=== PATIENT | female | born 1945 | race Caucasian/White ===

== ENCOUNTER → 2016-04-23 08:33 | Outpatient (CLI) | payer OTHER ==
[~2016-04-23 08:33] MED LIST: ASPIRIN EC81 M1 PO; BACLOFEN10 MG PO; DIOVAN HCT 160/1 TA1 PO; NAMENDA XR28 MG PO; OMEPRAZOLE20 M1 PO; PLAVIX75 MG PO; PROTONIX40 MG PO; SYNTHROID88 MCG PO; ZOCOR10 MG PO; ZYPREXA5 MG PO
== END | disposition home or self-care (01) ==
LOC: D.NM 08:33
DX: R11.2 Nausea with vomiting, unspecified (principal); R19.7 Diarrhea, unspecified

== ENCOUNTER 2016-06-05 13:15 | Inpatient (IN) | payer MEDICARE ==
[~2016-06-05] VITALS: Ht 167.6 cm; Wt 57.2 kg
[2016-06-05 13:51] LABS: BASOPHILS 0.1 % (0.0-2.0); EOSINOPHILS 0.1 % (0-7); HEMATOCRIT 43.9 % (36.0-48.0); HEMOGLOBIN 14.8 g/dL (12-16); LYMPHOCYTES 12.3 % (15-50); MCH 32.9 pg (26.0-34.0); MCHC 33.7 g/dL (31.0-37.0); MCV 97.6 fL (80.0-100.0); MEAN PLATELET VOLUME 9.2 fL (7.4-10.4); MONOCYTES 11.1 % (2-11); NEUTROPHILS 75.4 % (40-80); PLATELET COUNT 192 10x3/uL (130-400); WBC 10.4 10x3/uL (4.8-10.8)
[2016-06-05 14:08] LABS: ALBUMIN 3.8 g/dL (3.4-5.0); BILIRUBIN - TOTAL 0.26 mg/dL (0.2-1.3); CALCIUM 9.5 mg/dL (8.5-10.1); CARBON DIOXIDE 33.5 mmol/L (21.0-32.0); CREATININE - SERUM 0.9 mg/dL (0.6-1.3); POTASSIUM - SERUM 3.5 mmol/L (3.5-5.1); PROTEIN - SERUM 7.4 g/dL (6.4-8.2)
[2016-06-05 14:10] LABS: APTT 22.4 SECONDS (22.8-39.4); INR 0.91 (0.85-1.17)
[2016-06-05 14:17] LABS: THYROID STIMULATING HORMONE 0.01 uIU/mL (0.36-3.74)
[2016-06-05 14:31] LABS: APPEARANCE CLEAR (CLEAR); BACTERIA FEW /hpf (NONE SEEN); BILIRUBIN NEGATIVE (NEGATIVE); COLOR STRAW (YELLOW); EPITHELIAL CELLS RARE /hpf (0-5); GLUCOSE NEGATIVE (NEGATIVE); KETONE NEGATIVE (NEGATIVE); LEUKOCYTE ESTERASE TRACE (NEGATIVE); NITRITE NEGATIVE (NEGATIVE); PROTEIN NEGATIVE (NEGATIVE); SPECIFIC GRAVITY 1.005 (1.005-1.020); UROBILINOGEN NORMAL (NORMAL); WHITE CELLS - URINE OCC /hpf (0-5)
[2016-06-05] MEDS ORDERED: SYNTHROID88 MCG PO (18:28)
[2016-06-05] MEDS ORDERED: DIOVAN HCT 160/1 TA1 PO (18:28)
[2016-06-05] MEDS ORDERED: PLAVIX75 MG PO (18:29)
[2016-06-05] MEDS ORDERED: OMEPRAZOLE20 M1 PO (18:30)
[2016-06-05] MEDS ORDERED: NAMENDA XR28 MG PO ×2 (18:31)
[2016-06-05] MEDS ORDERED: ZOCOR10 MG PO (18:31)
[2016-06-05] MEDS ORDERED: ZYPREXA5 MG PO (18:32)
[2016-06-05 19:17] VITALS: BP 158/78; BMI 20.3
[2016-06-05 20:00] VITALS: BP 145/52
--- NOTE | 2016-06-05 20:00 | NUR ---
PT RESTING QUIETLY, FLAT AFFECT AND APPEARS WITHDRAWN. NURSE AND EXECUTIVE PILOT REPOSITIONED IN BED FOR COMFORT, PT DENIES ANY NEEDS OTHERWISE. BED IN LOWEST POSITION, CALL LIGHT IN REACH, ASSESSMENT PER FLOWSHEET.
[2016-06-06] VITALS: BP 157/62
--- NOTE | 2016-06-06 00:42 | NUR ---
PT RESTING QUIETLY, RESP EVEN AND UNLABORED ON 2L NC. DENIES ANY NEEDS AT THIS TIME. CALL LIGHT IN REACH.
--- NOTE | 2016-06-06 00:43 | NUR ---
CONSULT PAGED TO DR. GONSALVES.
--- NOTE | 2016-06-06 01:05 | NUR ---
RESTING WITH EYES CLOSED, NO DISTRESS NOTED, SAFETY PRECAUTIONS IN PLACE, CL IN REACH
--- NOTE | 2016-06-06 03:00 | NUR ---
PT CONFUSED, TRYING TO CLIMB OUT OF BED. BED ALARM IN PLACE, ATTEMPTED TO REORIENT. PT THEN EXPLAINED THAT SHE WAS WET AND HER SHEETS WERE WET. LINEN CHANGE AT THIS TIME.
[2016-06-06 04:00] VITALS: BP 166/76
--- NOTE | 2016-06-06 07:30 | NUR ---
AWAKE ALERT LEFT SIDE FLACCID LEG LEFT ARM CONTRACTED AT PRESENT.RESP EVEN AND UNLABORED AT PRESENT.
[2016-06-06 08:38] VITALS: BP 144/67
--- NOTE | 2016-06-06 09:00 | NUR ---
MEDS GIVEN WITH SIP OF H20 KAMERON WELL.
--- NOTE | 2016-06-06 10:00 | NUR ---
CONT NPO FOR TEST INCONT OF URINE LINENS CHGD KAMERON WELL AT PRESENT.
--- NOTE | 2016-06-06 12:00 | NUR ---
QUIET IN ROOM AT PRESENT CONT NPO AT PRESENT AT BEDSIDE.
[2016-06-06 12:52] VITALS: Ht 167.6 cm; Wt 57.2 kg
--- NOTE | 2016-06-06 13:00 | NUR ---
CONT NPO FOR TEST AT PRESENT N/C.
[2016-06-06 13:04] VITALS: BP 132/66
--- NOTE | 2016-06-06 14:00 | NUR ---
TO X-RAY VIA BED AT PRESENT FAMILY AT BEDSIDE AT PRESENT.
--- NOTE | 2016-06-06 16:00 | NUR ---
INCONT OF URINE AT PRESENT LINENS GD AT PRESENT.
[2016-06-06 16:43] VITALS: BP 154/68
--- NOTE | 2016-06-06 17:14 | NUR ---
Rehab Note- Acute Rehab Precreen order received. The patient has [employer] insurance and will require a PreAuth prior to IRF stay. Will need a PT and OT eval to submit to [facility] for PreAuth. Will follow at this time and will submit for PreAuth when therapy evals are avaliable. Thank you for this referral! Susana Rodriguez RN Clinical Liaison, [facility] Rehab/Misael
--- NOTE | 2016-06-06 17:56 | NUR ---
AWAKE ALERT ON HER WAY TO MRI VIA STRETCHER AT PRESENT SL PATENT IN RT WRIST AT PRESENT.
[2016-06-06 20:00] VITALS: BP 139/64
[2016-06-07] VITALS: BP 133/55
--- NOTE | 2016-06-07 02:23 | NUR ---
RESTING WITH EYES CLOSED, NO DISTRESS NOTED, CL IN REACH
[2016-06-07 04:00] VITALS: BP 145/61
[2016-06-07 06:13] LABS: BASOPHILS 0.1 % (0.0-2.0); EOSINOPHILS 0.6 % (0-7); HEMOGLOBIN 15.5 g/dL (12-16); IMMATURE GRANULOCYTES 0.8 % (0-5); LYMPHOCYTES 20.1 % (15-50); MCH 33.4 pg (26.0-34.0); MCHC 34.4 g/dL (31.0-37.0); MEAN PLATELET VOLUME 9.2 fL (7.4-10.4); MONOCYTES 12.1 % (2-11); NEUTROPHILS 66.3 % (40-80); PLATELET COUNT 185 10x3/uL (130-400); RBC 4.64 10x6/uL (4.00-5.40); RDW 13.1 % (11.5-14.5); WBC 7.8 10x3/uL (4.8-10.8)
[2016-06-07 06:25] LABS: ANION GAP 11.6 mmol/L (8-16); CARBON DIOXIDE 29.7 mmol/L (21.0-32.0); CREATININE - SERUM 0.9 mg/dL (0.6-1.3); POTASSIUM - SERUM 3.3 mmol/L (3.5-5.1)
[2016-06-07 06:33] LABS: CALCIUM 7.1 mg/dL (8.5-10.1)
--- NOTE | 2016-06-07 07:25 | NUR ---
AWAKE ALERT COLOR ADQ SKIN WARM AND DRY AT PRESENT DENIES ANY NEEDS INCONT OF URINE LINENS TANIA REPOSITIONED IIN BED AT PRESENT.
[2016-06-07 08:35] VITALS: BP 137/60
--- NOTE | 2016-06-07 09:10 | NUR ---
MEDS GIVEN KAMERON WELL AT PRESENT DENIES ANY NEEDS AT THIS TIME.
--- NOTE | 2016-06-07 09:10 | NUR ---
INCONT OF URINE LINENS CHGD KAMERON WELL MEDS GIVEN KAMERON WELL.
--- NOTE | 2016-06-07 09:41 | NUR ---
Patient Name: CLINT HUSAIN Admission Status: ER Accout number: [id number] Admission Date: 06-05-2016 : 1945 Admission Diagnosis: Attending: ZACHARY Current LOS: 2 Anticipated DC Date: 06-10-2016 Planned Disposition: Fpc Facility Primary Insurance: [employer] CHOICE PPO MCR [employer]VANT Discharge Planning Comments: CM CALLED SPOUSE REGARDING PATIENTS D/C NEEDS AND PLANS. PATIENT CONFUSED SO SPOUSE WAS CALLED. PATIENT HAS NOT BEEN ABLE TO WALK PER SPOUSE AND HE HAS REQUESTED GROUP HOME AT DISCHARGE. PATIENTS PCP IS DR. SHARMA AND PHARMACY IS [facility] ON [address] [place] [address]. PATIENT HAS 1 STEP W/O RAILS TO ENTER HOME AND NO STAIRS INSIDE PER SPOUSE. PATIENT HAS RECENTLY BEEN IN [facility] [place] PER SPOUSE. PATIENT HAS A WALKER AT HOME IF SHE BECOMES ABLE TO WALK AGAIN PER SPOUSE. SPOUSE VERBALIZED THE [facility] FOR HIS AT DISCHARGE. CM WILL CONTINUE TO FOLLOW PATIENT WITH D/C NEEDS AND PLANS. PCP DR. SHARMA [facility]. PHARMACY [address] [place] [address]- [phone] RASHEED HUSAIN (SPOUSE) [phone] Diesel Engine Operator: Kasey Astorga Is the patient Alert and Oriented? No 0 * How many steps to enter\exit or inside your home? 1 W/O RAIL 0 * PCP DR. SHARMA 0 * Pharmacy [facility] ON [address] [place] [address] 0 * Preadmission Environment Home with Family 0 * ADLs Total Dependent 0 * Equipment Walker 0 * List name and contact numbers for known caregivers / representatives who currently or will assist patient after discharge: RASHEED (SPOUSE) [phone] * Community resources currently utilized None 0 * Additional services required to return to the preadmission environment? Yes 0 * Can the patient safely return to the preadmission environment? Yes 0 * Has this patient been hospitalized within the prior 30 days at any hospital? No 0 Grand Total: 0
--- NOTE | 2016-06-07 10:00 | NUR ---
INCONT OF URINE LINENS CHGD REPOSITIONED IN BED AT PRESENT.
[2016-06-07 11:23] VITALS: BP 141/60
--- NOTE | 2016-06-07 12:12 | NUR ---
AWAKE ALERT COLORD ADQ RESP EVEN AND UNLABORED AT BEDSIDE.
--- NOTE | 2016-06-07 14:33 | NUR ---
SLEEPING QUIETLY AT PRESENT DENIES ANY NEEDS AT PRESENT.FAMILY AT BEDSIDE.
[2016-06-07 15:50] VITALS: BP 113/54
[2016-06-07 19:00] VITALS: BP 116/63
--- NOTE | 2016-06-07 20:50 | NUR ---
PATIENT RESTING IN BED. ALERT. DISORIENTED TO PLACE, TIME, AND SITUATION. ANXIOUS. RESPIRATIONS ARE EVEN AND UNLABORED. BED RAILS UP X3. BED ALARM ON. CALL LIGHT IN REACH.
--- NOTE | 2016-06-08 03:15 | NUR ---
PT CONTINUALLY YELLING OUT FOR "RASHEED", CONFUSED AT THIS TIME, EASILY REDIRECTED, FALL PRECAUTIONS IN PLACE, CL IN REACH
[2016-06-08 04:00] VITALS: BP 116/54
--- NOTE | 2016-06-08 07:30 | NUR ---
SLEEPING, EASILY AROUSED, DENIES NEEDS, BED LOWEST POSITION, CALL LIGHT IN REACH, WILL CONTINUE TO MONITOR
--- NOTE | 2016-06-08 07:40 | NUR ---
PATIENT ALERT IN LOW SOFIA POSITION RESTING WITH EYES CLOSED. RESPIRATIONS EVEN AND UNLABORED. AGUS, NURSE AID AT BEDSIDE. SIDE RAILS UP X2. BED IN LOW POSITION. CALL LIGHT IN REACH.
[2016-06-08 08:09] VITALS: BP 136/69
--- NOTE | 2016-06-08 09:49 | NUR ---
CM REASSESSMENT NOTE: REFERRAL HAS BEEN SENT TO [facility].
--- NOTE | 2016-06-08 10:29 | NUR ---
Rehab Note- Called [employer] to begin PreAuth process. Case #[id number]. Awaiting clinicals to be faxed. Awaiting OT eval. Will continue to follow the patient at this time. Susana Rodriguez RN Clinical Liaison, [facility] Rehab/Misael
[2016-06-08 10:31] LABS: BASOPHILS 0.1 % (0.0-2.0); EOSINOPHILS 0.7 % (0-7); HEMATOCRIT 46.5 % (36.0-48.0); IMMATURE GRANULOCYTES 0.7 % (0-5); LYMPHOCYTES 11.3 % (15-50); MCH 33.3 pg (26.0-34.0); MCHC 34.4 g/dL (31.0-37.0); MCV 96.9 fL (80.0-100.0); MEAN PLATELET VOLUME 9.4 fL (7.4-10.4); MONOCYTES 8.3 % (2-11); NEUTROPHILS 78.9 % (40-80); PLATELET COUNT 218 10x3/uL (130-400)
[2016-06-08 10:57] LABS: ALBUMIN 3.4 g/dL (3.4-5.0); ANION GAP 15.2 mmol/L (8-16); BILIRUBIN - TOTAL 0.47 mg/dL (0.2-1.3); CARBON DIOXIDE 24.2 mmol/L (21.0-32.0); POTASSIUM - SERUM 3.4 mmol/L (3.5-5.1); PROTEIN - SERUM 6.9 g/dL (6.4-8.2)
[2016-06-08 10:59] LABS: WBC 10.5 10x3/uL (4.8-10.8)
[2016-06-08 11:00] LABS: CALCIUM 9.1 mg/dL (8.5-10.1); CREATININE - SERUM 1.3 mg/dL (0.6-1.3)
[2016-06-08 11:40] VITALS: BP 85/51
--- NOTE | 2016-06-08 12:00 | NUR ---
BLOOD PRESSURE LOW, BOLUS GIVEN, BP CAME UP TO 101/65, WILL CONTINUE TO MONITOR
[2016-06-08 15:32] VITALS: BP 95/38
--- NOTE | 2016-06-08 16:55 | NUR ---
CM REASSESSMENT NOTE: PATIENTS SPOUSE WENT TO [facility] AND DECIDED HE DID NOT LIKE IT. REFERRAL DOWNSTAIRS TO IP WAS ORDERED BY DR. SHARMA. CM WAITING TO HERE FROM [facility]. [facility]AB STATED THEY SHOULD KNOW SOMETHING TOMORROW.
--- NOTE | 2016-06-08 20:00 | NUR ---
ASSESSMENT ND FLOWSHEET. SPOUSE AT EDSIDE. PT WITH EYES CLOSED RESPIRATIONS WITH EASE AND UNLABORED AROUSES TO VERBAL STIMULI. SALINE LOCK PATENT TO RT WRIST SCD'S ON. SR UP X2 CALL LIGHT WITHIN REACH. BED ALARM BED ACTIVATED.
--- NOTE | 2016-06-08 21:00 | NUR ---
MEDS GIVEN PER MAR.
[2016-06-09] VITALS: BP 107/49
--- NOTE | 2016-06-09 | NUR ---
SPOUSE LEFT BED ALARM ON SR UP X3 CALL LIGHT GIDEON COLON. PT AWAKE AT TIMES AND CALLS OUT FOR HER . REORIENTED PT TO PLACE AND TIME AND TOLD PATIENT SPOUSE WENT HOME TO TAKE CARE OF THE PETS.
--- NOTE | 2016-06-09 02:00 | NUR ---
EYES CLOSED RESPIRATIONS WITH EASE AND UNLABORED.
[2016-06-09 04:00] VITALS: BP 137/53
--- NOTE | 2016-06-09 04:28 | NUR ---
RESTING QUIETLY RESPIRATIONS WITH EASE AND UNLABORED.
[2016-06-09 06:32] LABS: BASOPHILS 0.2 % (0.0-2.0); EOSINOPHILS 0.6 % (0-7); HEMATOCRIT 43.4 % (36.0-48.0); HEMOGLOBIN 14.8 g/dL (12-16); IMMATURE GRANULOCYTES 0.6 % (0-5); LYMPHOCYTES 13.2 % (15-50); MCH 33.4 pg (26.0-34.0); MCHC 34.1 g/dL (31.0-37.0); MEAN PLATELET VOLUME 9.6 fL (7.4-10.4); MONOCYTES 11.6 % (2-11); NEUTROPHILS 73.8 % (40-80); PLATELET COUNT 189 10x3/uL (130-400); RBC 4.43 10x6/uL (4.00-5.40); RDW 13.1 % (11.5-14.5)
[2016-06-09 06:51] LABS: ANION GAP 10.9 mmol/L (8-16); BILIRUBIN - TOTAL 0.48 mg/dL (0.2-1.3); CALCIUM 9.1 mg/dL (8.5-10.1); CARBON DIOXIDE 29.4 mmol/L (21.0-32.0); CREATININE - SERUM 1.2 mg/dL (0.6-1.3); POTASSIUM - SERUM 3.3 mmol/L (3.5-5.1); PROTEIN - SERUM 6.3 g/dL (6.4-8.2)
--- NOTE | 2016-06-09 07:32 | NUR ---
EYES CLOSED RESPIRATIONS WITH EASE AND UNLABORED.
--- NOTE | 2016-06-09 07:57 | NUR ---
PATIENT IN LOW SOFIA POSITION RESTING WITH EYES CLOSED. RESPIRATIONS EVEN AND UNLABORED. SIDE RAILS UP X2. BED IN LOW POSITION. CALL LIGHT IN REACH.
[2016-06-09 08:12] VITALS: BP 100/51
--- NOTE | 2016-06-09 11:12 | NUR ---
WOUND CARE CONSULT: D/T POTENTIAL/HIGH RISK FOR BREAKDOWN. PT PLACED ON A TURN/REPOSITION Q2H SCHEDULE\ WILL CONTINUE MONITORING
[2016-06-09 11:50] VITALS: BP 78/48
--- NOTE | 2016-06-09 12:00 | NUR ---
Rehab Note- Have received Auth #[id number] for IRF stay from Morelia Mayers with [employer] contact # [phone]. Will plan on the patient to discharge to [facility]. Spoke with MARY Parks to inform her that we had received Auth for rehab stay. Thank you for this referral! Susana Rodriguez RN Clinical Liaison, [facility] Rehab/Misael
--- NOTE | 2016-06-09 14:18 | NUR ---
NUTRITION MONITORING & EVAL CHART REVIEWED. PT UP IN CHAIR. TOLERATING CURRENT DIET, ~ 75% INTAKE RECENT MEALS. RD FOLLOWING
--- NOTE | 2016-06-09 14:28 | NUR ---
OT NOTE: PT MUCH MORE ALERT TODAY; PT REQUESTING TO GET OUT OF BED; PERFORMED BED MOB WITH MOD ASSIST; PRACTICED STATIC SITTING ON EDGE OF BED WITH MAX ASSIST; PT TRANSFERRED WITH ONLY MOD ASSIST, HOWEVER, TRUNK STRENGTH IS VERY POOR; PERFORMED PROM TO L UE. REPORTS THAT L UE WAS VERY "LOOSE" YESTERDAY EVENING, HOWEVER, INCREASED TONE NOTED TODAY
[2016-06-09 15:38] VITALS: BP 105/54
[2016-06-09 20:00] VITALS: BP 108/42
--- NOTE | 2016-06-09 20:00 | NUR ---
ASSESSSMENT PER FLOWSHEET. LEFT ARM/LEG FLACCID SPEECH CLEAR. IV PATENT RT WRIST SALINE LOCKED. SPOUSE AT BEDSIDE. PT HAS SOME CONFUSION NOTED. DISORIENTED TO PLACE AND TIME.
--- NOTE | 2016-06-09 22:00 | NUR ---
MEDS GIVEN PER MAY. SPOUSE LEFT FOR THE NIGHT BED ALARM BED ON. SCD'S ON.
--- NOTE | 2016-06-09 22:41 | NUR ---
C/O PAIN ALL OVER. NORCO 5 TAB ONE PO GIVEN FOR PAIN CONTROL.
[2016-06-10] VITALS: BP 112/39
--- NOTE | 2016-06-10 00:30 | NUR ---
PATIENT REQUESTING HER BE CALLED TO COME UP HERE. NOTIFIED PT'S SPOUSE HE DID SPEAK WITH HER OVER THE PHONE THEN DECIDED TO COME BACK TO BE WITH HERE.
--- NOTE | 2016-06-10 00:45 | NUR ---
SPOUSE AT BEDSIDE.
--- NOTE | 2016-06-10 02:30 | NUR ---
PT CALM RESTING QUIETLY. SPOUSE DECIDED TO GO HOME
--- NOTE | 2016-06-10 03:42 | NUR ---
EYES CLOSED RESPIRATIONS WITH EASE AND UNLABORED.
[2016-06-10 04:00] VITALS: BP 120/48
[2016-06-10 05:47] LABS: BASOPHILS 0.2 % (0.0-2.0); EOSINOPHILS 0.7 % (0-7); HEMATOCRIT 39.8 % (36.0-48.0); HEMOGLOBIN 13.6 g/dL (12-16); IMMATURE GRANULOCYTES 0.2 % (0-5); MCH 33.3 pg (26.0-34.0); MCHC 34.2 g/dL (31.0-37.0); MCV 97.5 fL (80.0-100.0); MEAN PLATELET VOLUME 9.4 fL (7.4-10.4); MONOCYTES 13.6 % (2-11); NEUTROPHILS 68.3 % (40-80); PLATELET COUNT 161 10x3/uL (130-400); RBC 4.08 10x6/uL (4.00-5.40); RDW 12.9 % (11.5-14.5); WBC 8.2 10x3/uL (4.8-10.8)
[2016-06-10 06:26] LABS: ALBUMIN 2.8 g/dL (3.4-5.0); ANION GAP 12.5 mmol/L (8-16); BILIRUBIN - TOTAL 0.5 mg/dL (0.2-1.3); CALCIUM 8.6 mg/dL (8.5-10.1); CARBON DIOXIDE 27.9 mmol/L (21.0-32.0); POTASSIUM - SERUM 3.4 mmol/L (3.5-5.1); PROTEIN - SERUM 5.5 g/dL (6.4-8.2)
--- NOTE | 2016-06-10 06:46 | NUR ---
K+=3.4 40MEQ K+GIVEN PO IN ORANGE JUICE PER Shirley ESTRADA.
[2016-06-10 08:05] VITALS: BP 104/35
[2016-06-10] MEDS ORDERED: PROTONIX40 MG PO (09:34)
[2016-06-10] MEDS ORDERED: ASPIRIN EC81 M1 PO (09:35)
--- NOTE | 2016-06-10 10:59 | NUR ---
PT RESTING IN BED, DISCHARGE INSTRUCTIONS AND PAPERS GIVEN, QUESTIONS ANSWERED, TAKEN TO REHAB IN WITH BELONGINGS
--- NOTE | 2016-06-12 14:54 | EC ---
PATIENT:CLINT HUSAIN DATE OF SERVICE: 06/05/16 SEX: F MEDICAL RECORD: [id number] DATE OF : [birth year] LOCATION:[facility] AGE OF PATIENT: 70 ADMISSION DATE: 06/05/16 REFERRING PHYSICIAN: INTERPRETING PHYSICIAN: PAIGE PEREIRA M.D. ECHOCARDIOGRAM REPORT ECHO CHARGES 4 ECHO COMPLETE CLINICAL DIAGNOSIS: CVA HX CVA AND HTN ECHOCARDIOGRAPHIC MEASUREMENTS (adult normal given) AC root (d.<3.7cm) 4.0 LV Septum d (<1.2 cm> 1.6 Valve Excursion 2.1 LV Septum (systole) 1.7 Left Atria (s.<4.0cm> 2.8 LVPW d(<1.2cm) 1.6 RV (d.<2.3cm) 3.0 LVPW (sytole) 2.1 LV diastole(<5.6CM) 5.3 MV E-F(>70mm/sec) LV systole 3.9 LVOT Diameter 1.6 MV exc.(>10mm) Est.ejection fraction (50-75%) Pericardial Effusion N DOPPLER: LVIT A 78.0 E 56.0 LA RVSP 30 LVOT 89 AOP1/2T Asc. Ao 136 RVOT 107 RA PA 126 AV Gradient Peak 7.42 AV Mean 3.67 AV Area 1.5 MV Gradient Peak 2.93 MV Mean 1.23 MV Area COMMENTS: [employer] Quality Control Technician: Stone CABRAL[employer] Accountant:2 Dr. Pereira TAPE# PACS DATE OF SERVICE: 06/06/2016 REFERRING PHYSICIAN: Ernst Christianson MD INDICATION: CVA. DESCRIPTION: Left ventricle demonstrates left ventricular hypertrophy. No wall motion abnormalities are noted. Ejection fraction 55%. There is no evidence of any mass or thrombus in the left ventricle apex. Mitral valve is structurally normal. There is no regurgitation or prolapse seen. Left atrium is normal in ECHOCARDIOGRAM REPORT [id number] CLINT HUSAIN size. The aortic valve is trileaflet. There is no stenosis or regurgitation seen. Right ventricle is mildly dilated. Tricuspid valve is structurally normal. There is no regurgitation noted. Right atrium is normal size. There is no pericardial effusion seen. IMPRESSION: 1. Left ventricular hypertrophy with preserved ejection fraction of 55%. 2. No evidence of any mass or thrombus in the left ventricle apex. 3. No evidence of atrial septal defect, ventricular septal defect or patent foramen ovale. TRANSINT:[id number] Voice Confirmation ID: [id number] DOCUMENT ID: [id number] PAIGE PEREIRA M.D. at 1454 CC: [id number] DICTATION DATE: 06/07/16 0749 TEACHERS' AIDE: 06/07/16 1214 DIS IN 06/10/16 [place] [id number] [place] [id number]
== END 2016-06-10 11:02 | DRG 65 ==
LOC: D.ER 13:15 → D.MS 16:23
PROVIDERS: Emergency Medicine; Family Medicine; ADMIT Family Medicine
DX: I63.9 Cerebral infarction, unspecified (principal); G81.94 Hemiplegia, unspecified affecting left nondominant side; I67.5 Moyamoya disease; R29.810 Facial weakness; F01.50 Vascular dementia, unspecified severity, without behavioral disturbance, psychotic disturbance, mood disturbance, and anxiety; E05.90 Thyrotoxicosis, unspecified without thyrotoxic crisis or storm; E78.5 Hyperlipidemia, unspecified; I95.1 Orthostatic hypotension

== ENCOUNTER 2016-06-10 11:07 | Inpatient (IN) | payer MEDICARE ==
[~2016-06-10 11:07] MED LIST changes: -BACLOFEN10 MG PO
--- NOTE | 2016-06-10 11:30 | NUR ---
ADMITTED TO REHAB WITH CVA,/WC TO ROOM 1109;ORIENTED TO SURROUNDINGS;ACCOMPANIED ALSO BY .CL AT SIDE.ALARM SYSTEM PLACED.DENIES NEEDS.
[2016-06-10 13:27] VITALS: BP 115/93; BMI 20.2
--- NOTE | 2016-06-10 16:00 | NUR ---
DAUGHTER AT BEDSIDE.CL IN REACH.
--- NOTE | 2016-06-10 19:40 | NUR ---
ASSISTED PATIENT UP TO BR TO URINATE AND THEN BACK TO BED. PATIENT IS FLACCID ON LEFT SIDE, HAS EXTREMELY POOR BALANCE AND IS ORIENTED X1 ONLY. SHE IS A TOTAL ASSIST FOR TRANSFERS AND REQUIRES MAX ASSIST FOR BALANCE ON COMMODE. WILL BE USING BSC WITH HER TO MAINTAIN AN UPRIGHT POSITION WITH BILAT [employer] SUPPORT FOR BALANCE WHEN TOILETING.
[2016-06-10 21:07] VITALS: BP 115/68
--- NOTE | 2016-06-10 21:10 | NUR ---
PATIENT QUIETLY CALLING OUT FOR WHO WAS HER TO VISIT HER FOR A FEW MINUTES ABOUT 45 MINUTES AGO. REMINDED HER SHE IS IN THE HOSPITAL AND NOT AT HOME. ATTEMPTED TO RE-ORIENT HER TO TIME AND SITUATION WITHOUT SUCCESS. SR UP X3 WITH YURY BED ALARM ARMED. WATER IS IN REACH IS CALL LIGHT. REINFORCED THAT IT IS NIGHT TIME AND THAT SHE SHOULD TRY TO SLEEP. PATIENT IS PLEASANT BUT VERY DISORIENTED.
--- NOTE | 2016-06-10 22:00 | NUR ---
NEWTON CONFUSED. QUIETLY CALLING OUT FOR HER . REMINDED HER SHE IS IN THE HOSPITAL THAT IT IS LATE AND SHE NEEDS TO TRY TO SLEEP.
--- NOTE | 2016-06-11 00:25 | NUR ---
CLEANSED PATIENT AND CHANGED FRIEF AND PINK BED PAD AFTER LARGE URINARY INCONTINENCE IN BED. PATIENT INSISTED I CALL HER , RASHEED, AND TALK TO HIM ABOUT HER. SAYS, "RASHEED SAID I COULD TALK TO HIM ANYTIME." TOLD HER I WOULD CALL HIM.
--- NOTE | 2016-06-11 00:30 | NUR ---
CALLED PATIENT'S AND DESCRIBED PATIENT'S INCREASING FREQUENCY OF CALLING OUT FOR HIM AND HER NOT RECOGNIZING SHE IS IN THE HOSPITAL. TOLD HIM THAT CURRENTLY HER BEHAVIOR IS MANAGEABLE. BUT THAT IF IT BECOMES MORE PROBLEMATIC I WILL CALL HIM BACK. PATIENT IS IN AGREEMENT. PATIENT HAS STARTED TO FALL ASLEEP AGAIN AT THIS POINT, SO I WILL KEEP CLOSE TABS ON HER AND KEEP TRYING TO RE-ORIENT HER UNTIL SUCH A TIME THAT I NEED TO HAVE HER COME AND STAY WITH HER.
--- NOTE | 2016-06-11 01:15 | NUR ---
PATIENT'S JUST ARRIVED. DECIDED TO STAY WITH HIS TO HELP REDUCE HER ANXIETY.
--- NOTE | 2016-06-11 01:45 | NUR ---
REMAINS AWAKE, TALKING TO , BUT APPEARS TO BE LESS ANXIOUS AND MAY DROP OFF TO SLEEP SOON. REMAINS IN ROOM IN RECLINER.
--- NOTE | 2016-06-11 03:55 | NUR ---
CLEANSED PATIENT AND CHANGED HER BRIEF DUE TO URINE INCONTINENCE. REMAINS IN ROOM. SAYS PATIENT HAS SLEPT VERY LITTLE DESPITE HIS PRESENCE.
--- NOTE | 2016-06-11 05:45 | NUR ---
RESTING QUEITLY IN BED, EYES CLOSED. DEPARTED AROUND 0530 S PATIENT WAS FINALLY SLEEPING.
[2016-06-11 05:57] LABS: BASOPHILS 0.1 % (0.0-2.0); EOSINOPHILS 0.8 % (0-7); HEMATOCRIT 38.2 % (36.0-48.0); HEMOGLOBIN 12.8 g/dL (12-16); IMMATURE GRANULOCYTES 0.4 % (0-5); LYMPHOCYTES 17.7 % (15-50); MCH 32.4 pg (26.0-34.0); MCHC 33.5 g/dL (31.0-37.0); MCV 96.7 fL (80.0-100.0); MEAN PLATELET VOLUME 9.7 fL (7.4-10.4); MONOCYTES 13.5 % (2-11); NEUTROPHILS 67.5 % (40-80); PLATELET COUNT 146 10x3/uL (130-400); RBC 3.95 10x6/uL (4.00-5.40); RDW 12.5 % (11.5-14.5); WBC 7.9 10x3/uL (4.8-10.8)
[2016-06-11 06:11] LABS: ANION GAP 12.1 mmol/L (8-16); CALCIUM 8.8 mg/dL (8.5-10.1); CARBON DIOXIDE 28.5 mmol/L (21.0-32.0); CREATININE - SERUM 0.9 mg/dL (0.6-1.3); POTASSIUM - SERUM 3.6 mmol/L (3.5-5.1)
--- NOTE | 2016-06-11 08:00 | NUR ---
UP OOB WITH X 2 ASSIST.BSC USED.CLEANED AND SITTING UP IN WC.BREAKFAST GIVEN.CL IN REACH.
[2016-06-11 09:56] VITALS: BMI 20.1
[2016-06-11 10:35] VITALS: BP 123/59
--- NOTE | 2016-06-11 12:00 | NUR ---
UP IN BED LUNCH GIVEN.CL IN RECH.
--- NOTE | 2016-06-11 16:00 | NUR ---
VISITING WITH FAMILY AT BEDSIDE.
--- NOTE | 2016-06-11 19:30 | NUR ---
PT HAD INCONT EPISODE. PT BRIEF CHANGED AND PT REPOSITIONED. WCTM. BED LOW. CL IN REACH.
[2016-06-11 19:38] VITALS: BP 121/52
--- NOTE | 2016-06-11 21:30 | NUR ---
PT HS MEDS GIVEN. PT DENIES NEEDS AT THIS TIME. BED LOW. CL IN REACH.
--- NOTE | 2016-06-12 00:15 | NUR ---
SPOKE WITH [facility]RES TO GET ORDER FOR PAIN MEDICINE. PT HAS BEEN YELLING OUT IN PAIN. ORDER FOR HYDROCODONE 5/325 GIVEN AND ADMINISTERED TO PT. WCTM. BED LOW. CL IN REACH.
--- NOTE | 2016-06-12 02:12 | NUR ---
PT RESTING, EYES CLOSED. BED LOW. CL IN REACH.
--- NOTE | 2016-06-12 05:51 | NUR ---
AM MEDS ADMINISTERED. PT IS CALLING OUT FOR RASHEED AND STATING SHE IS HURTING ALL OVER. PT PAIN MED NOT DUE AT THIS TIME. WCTM. BED LOW. CL IN REACH.
[2016-06-12 06:53] LABS: ANION GAP 9.6 mmol/L (8-16); CARBON DIOXIDE 29.5 mmol/L (21.0-32.0); CREATININE - SERUM 0.9 mg/dL (0.6-1.3); MAGNESIUM - SERUM 1.9 mg/dL (1.8-2.4); POTASSIUM - SERUM 3.1 mmol/L (3.5-5.1)
--- NOTE | 2016-06-12 07:30 | NUR ---
RESTING QUIETLY IN BED. CALL LIGHT IN REACH
[2016-06-12 08:40] VITALS: BP 121/72
--- NOTE | 2016-06-12 10:38 | NUR ---
PATIENT AWAKE. SOME CONFUSION NOTED. REPEATS QUESTIONS. MAX ASST OF TWO. PATIENT IN REHAB ROOM. WORKING WITH PHYSICAL THERAPIST. DENIES ANY PAIN AT THIS.
--- NOTE | 2016-06-12 13:36 | NUR ---
PATIENT BACK IN REHAB AFTER LUNCH. WORKING WITH OCCUPATIONAL THERAPIST
--- NOTE | 2016-06-12 16:58 | NUR ---
PATIENT BACK IN BED, RESTING. PATIENT NEEDS HELP WITH SUPPER TRAY. CUTTING UP FOOD AND OPENING CONTAINORS. LEFT ARM/HAND FLACCID
[2016-06-12 19:38] VITALS: BP 129/76
--- NOTE | 2016-06-12 19:40 | NUR ---
PT. IN BED WITH HOB UP FOR COMFORT AND VISITING WITH SPOUSE. ASSESSMENT COMPLETED. PT. UNABLE TO ANSWER ORIENTATION QUESTIONS AND IS UNABLE TO BE RE-ORIENTED AT THIS TIME. CALL LIGHT REMAINS WITHIN REACH.
--- NOTE | 2016-06-12 23:01 | NUR ---
PT. IN BED WITH HOB UP FOR COMFORT WITH EYES CLOSED AND RESP. EVEN. CALL LIGHT WITHIN REACH. SPOUSE HAS GONE HOME FOR THE NIGHT.
--- NOTE | 2016-06-12 23:30 | NUR ---
PT. CALLING OUT LOUD FOR "RASHEED". EXPLAINED TO PT. THAT HER HAD GONE HOME. PT. STATED, "THIS IS HOME". REORIENTED PT. TO WHERE SHE WAS AND THEN SHE WAS SATISIFIED WITH MY INFORMATION AND THAT HER HAD LEFT. CALL LIGHT WITHIN REACH.
--- NOTE | 2016-06-13 03:01 | NUR ---
PT. IN BED WITH HOB UP FOR COMFORT WITH EYES CLOSED AND RESP. EVEN. PT. HAS NOT HAD ANY FURTHER REQUESTS FOR HER SINCE THE LAST EPISODE. CALL LIGHT WITHIN REACH.
[2016-06-13 07:00] VITALS: BP 123/60
--- NOTE | 2016-06-13 07:55 | NUR ---
PT IS RESTING IN BED WITH EYES CLOSED. AWOKE EASILY TO VERBAL STIMULI. DENIES ACUTE PAIN OR DISCOMFORT AT THIS TIME. LEFT SIDE IS FLACCID. TELEMETRY UNIT IS ON AND INTACT. PT DENIES ANY NEEDS. SR'S ARE UP X 2 IN BED. CALL LIGHT AND BEDSIDE TABLE ARE WITHIN EASY REACH.
--- NOTE | 2016-06-13 09:55 | NUR ---
PT IS PARTICIPATING IN THERAPY AT THIS TIME.
--- NOTE | 2016-06-13 12:38 | NUR ---
PT SITTING IN WC FOR LUNCH. FEEDING SELF SLOWLY. SPOUSE AT HER SIDE.
--- NOTE | 2016-06-13 15:00 | NUR ---
PT IS RESTING IN BED WITH EYES OPEN. ASSISTED TO THE BATHROOM WITH MAX ASSIST. VOIDED WITHOUT DIFFICULTY.
--- NOTE | 2016-06-13 19:40 | NUR ---
PT. IN BED WITH HOB UP FOR COMFORT AND C/O LEFT LEG PAIN. SPOUSE ATTEMPTING TO REPOSITION LEG BUT THIS IS NOT HELPING. WILL ADMIN. NORCO FOR #5 LLE PAIN. ASSESSMENT COMPLETED. CALL LIGHT WITHIN REACH. SPOUSE WILL NOT BE STAYING WITH PT. THIS EVENING HE FEELS SHE IS MORE AGITATED AT HIM WHILE HE IS HERE AND THIS KEEPS HER FROM RELAXING. CALL LIGHT WITHIN REACH.
[2016-06-13 20:30] VITALS: BP 121/62
--- NOTE | 2016-06-13 23:21 | NUR ---
PT. HAVING PROBLEMS REMEMBERING THAT HER SPOUSE HAS GONE HOME FOR THE NIGHT MORE THEN SHE DID LAST NIGHT. PT. WILL YELL OUT LOUD "RASHEED, I NEED HELP!" "RASHEED WHERE ARE YOU?" INFORMED PT. THAT HER HAS GONE HOME TO SLEEP AND WILL BE BACK IN THE MORNING. PT HAVING INCREASED DISCOMFORT IN HER LLE TONIGHT ALSO, AND PT. HAS ALREADY HAD A NORCO FOR PAIN RELIEF. ASSISTED PT. IN REPOSITIONING HERSELF AND CALL LIGHT WITHIN REACH.
--- NOTE | 2016-06-14 04:01 | NUR ---
PT. IN BED WITH HOB UP FOR COMFORT AND SPOUSE IS STAYING WITH PT. TO HELP KEEP HER CALM AND PREVENT PT. FROM YELLING OUT LOUD. PT'S EYES ARE CLOSED AND RESP. EVEN. CALL LIGHT WITHIN REACH.
[2016-06-14 07:00] VITALS: BP 121/73
--- NOTE | 2016-06-14 07:45 | NUR ---
PT RESTING IN BED WITH EYES OPEN. REQUESTED ASSIST TO THE BATHROOM. TRANSFERRED WITH MAX ASSIST. PT NOTED TO HAVE A SMALL AMOUNT OF FLATUS ON TOILET, AND IMMEDIATELY STATE, IM DONE, IM READY TO GO BACK TO BED. PT ASSISTED TO BED WITH HOB UP 40 DEGREES TO FEED SELF BREAKFAST. SR'S ARE UP X 3 IN BED. CALL LIGHT AND BEDSIDE TABLE ARE WITHIN EASY REACH.
--- NOTE | 2016-06-14 09:53 | NUR ---
PT IS RESTING QUIETLY IN BED WITH EYES CLOSED. RESPS ARE EVEN AND UNLABORED. NO ACUTE DISTRESS NOTED.
--- NOTE | 2016-06-14 10:23 | NUR ---
RESTING QUIETLY IN BED CALL MELO DEUTSCH
--- NOTE | 2016-06-14 13:31 | NUR ---
PT RESTING IN BED FEEDING SELF LUNCH AFTER TRAY SET UP FOR HER. NO SWALLOWING PROBLEMS NOTED.
--- NOTE | 2016-06-14 18:25 | NUR ---
PT RESTING IN BED WITH EYES CLOSED. NO DISTRESS NOTED.
--- NOTE | 2016-06-14 19:30 | NUR ---
RESTING QUIETLY IN BED, EYES CLOSED.
[2016-06-14 21:25] VITALS: BP 123/53
--- NOTE | 2016-06-14 21:25 | NUR ---
NOW PRESENT. SAYS HE WAS CALLED DURING THE NIGHT LAST NIGHT DUE TO PATIENT ACTING OUT. IN INFER HE IS GOING TO STAY AT LEAST PART OF THE NIGHT. HE ASSISTED ME TO CLEANSE PATIENT OF A LARGE COCA-COLA SPILL IN EHER BED WELL LARGE URINE INCONTINENCE IN HER BRIEF. FRESH PULL-UP WAS APPLIED WELL A FRESH SCRUB TOP. IN ADDITION. HER PINK BED PAD WAS CHANGED WELL HER TOP LINENS. WE THEN REPOSITIONED HER UP IN BED. ASSESSED PATIENT AD DELIVERED HER HS MEDS WHICH SHE SWALLOWED WITHOUT DIFFICULTY.
--- NOTE | 2016-06-15 00:05 | NUR ---
IN BED, C/O LEFT EARACHE AND PAIN IN LEFT HIP. EMPLACED WARM MOIST PACK TO LEFT EAR. INFORMED PATIENT AND S.O. THAT CANNOT GIVE NORCO UNTIL AROUND 0045 HRS DUE TO ORDERED FREQUENCY.
--- NOTE | 2016-06-15 00:50 | NUR ---
GAVE PATIENT LOI 5/325 X1 TAB PO FOR LEFT HIP AND EARACHE PAIN OF 10/10. WHEN I RAISED HER LEFT ARM TO SCAN HER WRIST BAND FOR HER PRN NORCO, PATIENT SLAPPED MY ARM WITH HER RIGHT HAND. TOLD HER SHE MAY NOT SLAP ANYONE ON STAFF NOR HER S.O. WHO IS HERE AT HER REQUEST AND IS KIND ENOUGH TO BE RESPONSIVE AND SUPPORTIVE OF HER. SHE CURTLY TOLD HIM TO GO HOME--THAT SHE DID NOT WANT HIM HERE. HE LEFT THE ROOM AND SAT IN THE HALLWAY OUT OF HER VIEW. CLEANSED HER AND CHANGED HER PULL-UP DUE TO LARGE URINE INCONTINENCE WHICH SHE INITIALLY DENIED. REMINDED HER THAT SHE HAS BEEN CALLING OUT FOR HER S.O., RASHEED, WHENEVER HE IS NOT PRESENT. ASKED HER THAT IF HE WAS STILL HERE DOES SHE WANT HIM AT HER BEDSIDE. SHE SAID YES SHE WANTS HIM BACK. NOTIFIED HER S.O. THAT SHE WANTS HIM TO STAY AND HE RETURNED TO THE ROOM. S.O. INFORMS ME THAT EARLY IN MAY SHE WAS IN THE HOSPITAL IN AND AFTER BEING COMBATIVE WAS ORDERED ON ZYPREXA FOR HER BEHAVIOR, AND IT WORKED WELL. HOWEVER DUE TO HER CHRONIC BLOOD PRESSURE DISORDER, WAS TAKEN OFF IT AT THAT TIME.
--- NOTE | 2016-06-15 03:50 | NUR ---
PATIENT AWAKE. CHECKED HER FOR INCONTINENCE AND FOUND NONE AT THIS TIME. CHANGED ALL TELEMETRY LEADS MONITORING STATION COULD NOT OBTAIN A GOOD TRACING.
--- NOTE | 2016-06-15 06:00 | NUR ---
RESTING IN BED, RESPIRING QUIETLY.
--- NOTE | 2016-06-15 07:00 | NUR ---
PT WAS RECEIVED IN BED WITH EYES CLOSED AT THE BEGINNING OF THIS SHIFT. TELEMETRY ON. NO SIGNS OF ANY DISCOMFORT OR DISTRESS. CALL LIGHT IS IN REACH. WILL BE MONITORING PT. AND ASSISTING PRN WITH ADL'S. LEFT SIDE IS FLACCID. VITAL SIGNS; TEMP. 98.0, PULSE 65, RESP. 14, B/P 113/54, 02SAT. 97%.
[2016-06-15 07:24] LABS: BASOPHILS 0.2 % (0.0-2.0); EOSINOPHILS 1.8 % (0-7); HEMATOCRIT 35.9 % (36.0-48.0); HEMOGLOBIN 12.3 g/dL (12-16); IMMATURE GRANULOCYTES 0.2 % (0-5); LYMPHOCYTES 22.4 % (15-50); MCH 32.2 pg (26.0-34.0); MCHC 34.3 g/dL (31.0-37.0); MEAN PLATELET VOLUME 9.4 fL (7.4-10.4); NEUTROPHILS 64.4 % (40-80); PLATELET COUNT 170 10x3/uL (130-400); RBC 3.82 10x6/uL (4.00-5.40); RDW 12.4 % (11.5-14.5); WBC 5.6 10x3/uL (4.8-10.8)
[2016-06-15 07:33] LABS: ANION GAP 10.9 mmol/L (8-16); CALCIUM 9.1 mg/dL (8.5-10.1); CARBON DIOXIDE 28.3 mmol/L (21.0-32.0); CREATININE - SERUM 0.9 mg/dL (0.6-1.3); POTASSIUM - SERUM 3.2 mmol/L (3.5-5.1)
[2016-06-15 13:20] VITALS: BP 113/54
--- NOTE | 2016-06-15 13:57 | NUR ---
PT. REQUESTED SOME MEDICATION FOR A HEADACHE AROUND 0930 AND WAS GIVEN A NORCO 5MG AT THAT TIME. THERAPY DEPT. TRIED WORKING WITH PT. AND REALIZED HER LEFT SIDE HAD SEVERE INCREASE TONE AND WOULD LIKE FOR HER TO BE GIVEN A BACLOFEN TAB. DR. BETHEA WAS NOTIFIED AND HE ORDERED BACLOFEN 10MG Q 8 HOURS PRN. SHE WAS GIVEN A BACLOFEN TAB AROUND 10:15AM. SHE WENT ON TO THERAPY AROUND 1100AM. NO FURTHER COMPLAINTS FROM THE PT. ON ANY DISCOMFORT.
--- NOTE | 2016-06-15 16:27 | NUR ---
CLINICALS FAXED TO LUIS FERNANDO DUBOSE AT AUTH.# [id number] WITH CONFORMATION RECIEVED
--- NOTE | 2016-06-15 18:28 | NUR ---
PT IS RESTING COMFORTABLY IN BED WITH HOB UP 25%. DIM LIGHTING IN ROOM. NO SIGNS OF ANY DISCOMFORT OR DISTRESS. CALL LIGHT WITHIN REACH.
--- NOTE | 2016-06-15 19:15 | NUR ---
RESTING IN BED, EYES CLOSED.
[2016-06-15 20:45] VITALS: BP 110/58
--- NOTE | 2016-06-15 21:45 | NUR ---
ASSESSMENT AND HS MEDS COMPLETE. GAVE HER NORCO 5/325 X1 TAB PO AND BACLOFEN 10MG PO FOR PAIN AND SPASMS IN LEFT ARM AND LEG.
--- NOTE | 2016-06-15 22:30 | NUR ---
PATIENT CALLED FOR ASSIST TO CHANGE BRIEF AFTER LARGE URINARY INCONTINENCE. PINK PAD WAS ALSO CHANGED.
--- NOTE | 2016-06-16 00:35 | NUR ---
IN BED, EYES CLOSED. S.O. DEPARTED UNIT FOR HOME PRIOR TO MIDNIGHT. PATIENT APPEARS COMFORTABLE.
--- NOTE | 2016-06-16 01:50 | NUR ---
IN BED, EYES CLOSED. RESPIRING QUIETLY.
--- NOTE | 2016-06-16 04:45 | NUR ---
RESTING QUIETLY, EYES CLOSED.
--- NOTE | 2016-06-16 06:00 | NUR ---
CLEANSED PATIENT AND CHANGED HER PULL-UP BRIEF AFTER LARGE URINE INCONTINENCE DURING SLEEP. PATIENT IS CALM AND COOPERATIVE. APPEARED TO SLEEP WELL DURING THE NIGHT.
--- NOTE | 2016-06-16 07:15 | NUR ---
INTRODUCED SELF TO PT, PT STATES NO NEEDS AT THIS TIME, CALL LIGHT WITHIN REACH.
[2016-06-16 08:35] VITALS: BP 120/47
--- NOTE | 2016-06-16 08:47 | NUR ---
MORNING MEDICATION GIVEN, PT TOLERATED WELL, WILL CONTINUE TO MONITOR, CALL LIGHT WITHIN REACH.
--- NOTE | 2016-06-16 10:45 | NUR ---
PT IN THERAPY, WILL CONTINUE TO MONITOR.
--- NOTE | 2016-06-16 12:48 | NUR ---
PT STATES HEADACHE, PAIN MEDICATION GIVEN, WILL CONTINUE TO MONITOR, CALL LIGHT WITHIN REACH.
--- NOTE | 2016-06-16 13:04 | RHP ---
PATIENT: CLINT HUSAIN MEDICAL RECORD: [id number] ACCOUNT: [id number] LOCATION:[facility] : 45 ADMISSION DATE: 06/10/16 REHABILITATION HISTORY AND PHYSICAL EXAMINATION POST ADMISSION PHYSICIAN EXAMINATION Post-Admission Physical Examination and History and Physical DATE OF ADMISSION: 06/10/2016 ADMITTING DIAGNOSES: Cerebrovascular accident with a right middle cerebral artery distribution involving the right frontal and parietal regions with a remote bilateral posterior cerebral artery and right parietal infarction and also moyamoya disease. HISTORY OF PRESENT ILLNESS: The patient is admitted inpatient rehab for right middle cerebral artery distribution infarction involving the right frontal and parietal lobes with a remote bilateral posterior cerebral artery and right parietal infarction in the past. She is a 70-year-old female patient of Dr. Christianson. She has a history of moyamoya disease and vascular dementia that presented with left-sided weakness on June 05. At that time, she actually could move her left upper extremity and left lower extremity, but now is noted to be flaccid. She has a noted history of urinary incontinence. Complained of headache upon acute admission. Upon admit to the hospital, a CT of her head was found to have a right frontal ischemic CVA. Neurology was consulted. She lives at home with her and was independent with mobility and ADLs, but is currently moderate to total assist with ADLs and moderate assist to total assist with mobility: She and her was planned discharge from inpatient rehab and get her back close to her prior level of functioning as possible. COMORBIDITIES: In this patient include moyamoya disease, acute right middle cerebral artery distribution infarction, acute hypothyroidism, chronic vascular dementia, hyperlipidemia, history of TIA, falls, hypoxia, dyspnea, shortness of breath, fatigue, aspiration, malaise, bleeding, anemia, arrhythmias, and acute mental status changes. PAST MEDICAL HISTORY: Significant for moyamoya disease, vascular dementia, TIA, hyperlipidemia, and hypertension. PAST SURGICAL HISTORY: Please see previous charts. ALLERGIES: PENICILLIN AND ASPIRIN. CURRENT MEDICATIONS: Include Namenda 10 mg b.i.d., Synthroid 88 mcg daily, Plavix 75 mg daily, Zocor 10 mg q.h.s., and Protonix 40 mg daily. HABITS: No alcohol or tobacco use. FAMILY HISTORY: Noncontributory. SOCIAL HISTORY: The patient once again hopes to return back home and get back to her prior level of function and if possible with her . REVIEW OF SYSTEMS: GENERAL: Does complain of weakness, especially one sided. HISTORY AND PHYSICAL [id number] CLINT HUSAIN HEENT: Denies cold, cough, or congestion. CARDIOVASCULAR: Denies chest pain. PHYSICAL EXAMINATION: VITAL SIGNS: Stable, afebrile. GENERAL: Elderly female, in no acute distress, alert upon exam. HEENT: Normocephalic and atraumatic. Mucosa moist. NECK: Supple. No lymphadenopathy. LUNGS: Clear at this time. HEART: Regular rate and rhythm. ABDOMEN: Benign. EXTREMITIES: No clubbing, cyanosis or edema. NEUROLOGIC: Consistent with weakness, especially on the left side. LABORATORY DATA: Admit white count is 7.9, H&H 13 and 38 and platelet count was noted to be 146. Sodium is 141, potassium 3.6, BUN and creatinine 23 and 0.9, and blood sugar is noted to be 96. ASSESSMENT: This is a 70-year-old female patient admitted to rehab with a working diagnosis of a right middle cerebral artery distribution infarction. The patient has potential to make improvement. We instituted the following multidisciplinary therapies including to, but not limited to physical, occupational, respiratory, speech, nutritional services, prosthetics and orthotics. Given her complex condition and risk for more complications, rehabilitation services cannot be provided at a lower level of care such as a fpc facility. PLAN: 1. Admit to [facility] rehab for intensive inpatient therapy to include the following disciplines: A. Physical therapy to improve gait, all transfer skills and bed mobility to a modified independent level. B. Occupational therapy to improve activities of daily living to a modified independent level. C. Case management to assist with discharge planning and placement options. D. Nutrition to work with nutritional needs. E. Rehabilitation nursing to assist in monitoring the patient's underlying medical conditions and to assist with any type of bowel or bladder management. 2. The patient's current medication and medical care will be continued. 3. The patient will be placed on standard fall precautions. 4. We will monitor her blood work and stuff closely. 5. We will hopefully get her back home to her prior level of functioning. TRANSINT:[id number] Voice Confirmation ID: [id number] DOCUMENT ID: [id number] HISTORY AND PHYSICAL [id number] CLINT HUSAIN SCOTT MD at 1304 CC: [id number] DICTATION DATE: 06/11/16823 L TACKER: 06/11/16 0908 ADM IN [facility] [address] [id number]
--- NOTE | 2016-06-16 13:13 | NUR ---
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 She said that her appetite is good. Pt is eating 25% meal avg on an AHA mechanical soft diet. +BM 06/11/16. No new wt to assess. Labs noted - K+ low. Meds noted. Pt with poor po intake at this time. Will change diet to regular mechanical soft to encourage po intake. Will continue to provide selective menus and honor food preferences. RD following.
--- NOTE | 2016-06-16 15:43 | NUR ---
AFRERNOON MEDICATION GIVEN, PT TOLERATED WELL, WILL CONTINUE TO MONITOR, CALL LIGHT WITHIN REACH.
--- NOTE | 2016-06-16 16:27 | NUR ---
PT RESTING, RESPIRATION EVEN, SIDE RAILS UP X'S 2, BED IN LOW POSITION, WILL CONTINUE TO MONITOR, CALL LIGHT WITHIN REACH.
--- NOTE | 2016-06-16 17:15 | NUR ---
PATIENT RESTING QUIETLY IN BED, HOB ELEVATED 30 DEGREES. RESP EVEN AND UNLAB. SRX2, BEDALARM INTACT AND ARMED FOR SAFETY. CL AT SIDE
--- NOTE | 2016-06-16 19:00 | NUR ---
RESTING QUIETLY IN BED, EYES CLOSED.
[2016-06-16 19:16] VITALS: BP 131/66
--- NOTE | 2016-06-16 21:15 | NUR ---
ASSESSMENT AND HS MEDS COMPLETE. S.O. ARRIVED WHILE I WAS GIVEING PATIENT HER HS MEDS. GAVE HER NORCO 5/325 X1 TAB PO FOR PAIN LEVEL OF 5/10 IN LEFT ARM AND LEG. ASSISTED PATIENT HIGHER UP IN BED. S.O WILL BE STAYING AWHILE, BUT IF PATIENT IS CALM AND COOPERATIVE, HE SAYS HE WILL PROBABLY NOT STAY THE NIGHT.
--- NOTE | 2016-06-16 22:25 | NUR ---
PATIENT RESTING QUIETLY IN BED, EYES CLOSED. RASHEED, HER S.O., IS AT THE NURSING STATION. HAS BEEN MAKING OBSERVATIONS ABOUT HER MEMORY AND PROGNOSIS. WE SPOKE AT LENGTH ABOUT HER, AND ABOUT HOW HE FEELS ABOUT HER CONDITION. I MENTIONED THAT HE BEEN INFORMED SHE HAS A TERMINAL DIAGNOSIS (MOYAMOYA DISEASE) THAT HER IN [place] GAVE HER ABOUT 6MOS AT THE OUTSIDE, I NOTICED THAT SHE DOES NOT HAVE A DNR ORDER ON HER CHART. EXPLAINED WHAT THE ORDER MEANS VS THE LIVING WILL THE PATIENT HAS ALREADY EXECUTED. TOLD HIM I AM PROVIDING INFO ONLY, AND THAT [facility], HE SHOULD DISCUSS IT WITH DR. SHARMA. HE STATED THAT A DNR WOULD PROBABLY A GOOD IDEA AND THAT HE WOULD THINK ABOUT IT AND SPEAK WITH THE DOCTOR.
--- NOTE | 2016-06-16 23:50 | NUR ---
IN BED, EYES CLOSED. NO APPARENT DISTRESS.
--- NOTE | 2016-06-17 02:40 | NUR ---
CONTINUES IN BED, EYES CLOSED. NO APPARENT DISCOMFORT.
--- NOTE | 2016-06-17 05:40 | NUR ---
CLEANSED PATIENT FROM LARGE URINARY INCONTINENCE. CHANGED HER PINK BED PAD AND APPLIED FRESH PULL-UP BRIEF.
[2016-06-17 06:27] LABS: BASOPHILS 0.4 % (0.0-2.0); EOSINOPHILS 1.5 % (0-7); HEMATOCRIT 38.8 % (36.0-48.0); HEMOGLOBIN 13.1 g/dL (12-16); IMMATURE GRANULOCYTES 0.4 % (0-5); LYMPHOCYTES 17.7 % (15-50); MCH 32.6 pg (26.0-34.0); MCHC 33.8 g/dL (31.0-37.0); MCV 96.5 fL (80.0-100.0); MEAN PLATELET VOLUME 9.5 fL (7.4-10.4); MONOCYTES 9.6 % (2-11); NEUTROPHILS 70.4 % (40-80); PLATELET COUNT 170 10x3/uL (130-400); RBC 4.02 10x6/uL (4.00-5.40); RDW 12.4 % (11.5-14.5); WBC 5.3 10x3/uL (4.8-10.8)
[2016-06-17 06:40] LABS: ANION GAP 10.1 mmol/L (8-16); CALCIUM 9.2 mg/dL (8.5-10.1); CARBON DIOXIDE 29.7 mmol/L (21.0-32.0); CREATININE - SERUM 0.9 mg/dL (0.6-1.3); POTASSIUM - SERUM 3.8 mmol/L (3.5-5.1)
--- NOTE | 2016-06-17 07:26 | NUR ---
PT IS RESTING QUIETLY IN BED WITH EYES CLOSED. RESPS ARE EVEN AND UNLABORED. NO ACUTE DISTRESS NOTED. TELEMETRY IS ON AND INTACT. SR'S ARE UP X3 IN BED. CALL LIGHT AND BEDSIDE TABLE ARE WITHIN EASY REACH.
[2016-06-17 09:00] VITALS: BP 160/79
--- NOTE | 2016-06-17 10:12 | NUR ---
INCONTINENT CARE BEING GIVEN BY STOPPER MAKER AT THIS TIME.
--- NOTE | 2016-06-17 13:17 | NUR ---
PT TO THERAPY AT THIS TIME.
--- NOTE | 2016-06-17 15:15 | NUR ---
PLACED IN BED FROM MAX ASSIST.CL AND ALARM IN PLACE.
--- NOTE | 2016-06-17 16:42 | NUR ---
CARE TEAM MEETING: SPOUSE ATTENDED MEETING AND PATIENT WILL DISCHARGE HOME 06/19/16. REFERRAL TO HOSPICE WILL BE MADE. WILL CONTINUE TO FOLLOW WITH PATIENT UNTIL DISCHARGED.PATIENT WILL DISCHARGE HOME.
--- NOTE | 2016-06-17 17:43 | NUR ---
PT IS FEEDING SELF SUPPER IN BED WITH HOB UP 45 DEGREES. NO SWALLOWING PROBLEMS NOTED.
--- NOTE | 2016-06-17 19:25 | NUR ---
D/C'D TELEMETRY PER NEW ORDER.
[2016-06-17 19:54] VITALS: BP 132/59
--- NOTE | 2016-06-17 21:20 | NUR ---
ASSESSMENT AND HS MEDS COMPLETE. GAVE HER NORCO 5/325 X1 TAB PO FOR PAIN LEVEL OF 4/10 IN LEFT ARM AND LEG.
--- NOTE | 2016-06-17 22:20 | NUR ---
RESTING IN BED, EYES CLOSED.
--- NOTE | 2016-06-18 00:30 | NUR ---
RESTING QUIETLY IN BED, EYES CLOSED. NO DISTRESS EVIDENT.
--- NOTE | 2016-06-18 02:10 | NUR ---
THUAISAugustus IN BED, EYES CLOSED. NO DISTRESS NOTED.
--- NOTE | 2016-06-18 04:45 | NUR ---
IN BED, EYES CLOSED. RESPIRING QUIETLY.
--- NOTE | 2016-06-18 05:50 | NUR ---
CLEANSED PATIENT FROM LARGE URINARY INCONTINENCE IN BRIEF. APPLIED FRESH PULL-UP BRIEF. GAVE PATIENT SCHEDULED PO MEDS WHICH SHE SWALLOWED WITHOUT DIFFICULTY.
--- NOTE | 2016-06-18 07:29 | NUR ---
PT RESTING IN BED WITH EYES OPEN CALL LIGHT IN REACH WILL MONITER
--- NOTE | 2016-06-18 08:00 | NUR ---
SITTING UP IN BED.CL IN REACH.
[2016-06-18 09:01] VITALS: BP 158/52
--- NOTE | 2016-06-18 10:18 | NUR ---
REFERRAL HAS BEEN FAXED TO [facility] FOR POSSIBLE ADMISSION
--- NOTE | 2016-06-18 16:20 | NUR ---
PATIENT HAS BEEN ACCEPTED TO [facility] AND WILL DISCHARGE HOME 06/19/16
--- NOTE | 2016-06-18 16:32 | NUR ---
PT RESTING IN BED WITH EYES OPEN CALL LIGHT IN REACH WILL MONITER
--- NOTE | 2016-06-18 20:00 | NUR ---
PT SITTING UP IN BED EATING CANDY, FAMILY AT BEDSIDE. PT IS HAPPY TO BE GOING HOME TOMORROW. PT DENIES NEEDS. AT THIS TIME. BED LOW. CL IN REACH.
[2016-06-18 20:57] VITALS: BP 159/69
--- NOTE | 2016-06-18 22:22 | NUR ---
PT TOOK HS MEDS WITHOUT DIFFICULTY. PT DENIES NEEDS. WCTM. BED LOW. CL IN REACH.
--- NOTE | 2016-06-19 00:15 | NUR ---
PT RESTING, EYES CLOSED. RR ARE EVEN AND UNLABORED. WCTM. BED LOW. CL IN REACH.
--- NOTE | 2016-06-19 03:00 | NUR ---
PT HEARD CALLING OUT FOR RASHEED. WENT TO PT ROOM AND ORIENTED HER BACK TO PLACE AND SITUATION AND TOLD HER RASHEED WOULD BE HERE IN THE MORNING. PT STATED UNDERSTANDING AND CLOSED HER EYES. WCTM. BED LOW. CL IN REACH.
[2016-06-19 05:58] LABS: BASOPHILS 0.1 % (0.0-2.0); EOSINOPHILS 0.3 % (0-7); HEMATOCRIT 40.1 % (36.0-48.0); HEMOGLOBIN 13.4 g/dL (12-16); IMMATURE GRANULOCYTES 0.3 % (0-5); LYMPHOCYTES 9.4 % (15-50); MCH 32.4 pg (26.0-34.0); MCHC 33.4 g/dL (31.0-37.0); MCV 96.9 fL (80.0-100.0); MEAN PLATELET VOLUME 9.6 fL (7.4-10.4); MONOCYTES 8.5 % (2-11); NEUTROPHILS 81.4 % (40-80); PLATELET COUNT 191 10x3/uL (130-400); RBC 4.14 10x6/uL (4.00-5.40); RDW 12.5 % (11.5-14.5)
[2016-06-19 05:59] LABS: WBC 7.9 10x3/uL (4.8-10.8)
--- NOTE | 2016-06-19 06:13 | NUR ---
PT TOOK AM MEDS WITHOUT DIFFICULTY. PT BRIEF, PINK PAD ADN SHIRT CHANGED DUE TO INCONT URINE. WCTM. BED LOW. CL IN REACH.
[2016-06-19 06:20] LABS: ANION GAP 13.4 mmol/L (8-16); CALCIUM 9.3 mg/dL (8.5-10.1); CARBON DIOXIDE 28.7 mmol/L (21.0-32.0); POTASSIUM - SERUM 4.1 mmol/L (3.5-5.1)
--- NOTE | 2016-06-19 07:59 | NUR ---
PT RESTING IN BED REPOSITINED IN BED WITH EYES OPEN CALL LIGHT IN REACH PT SET UP FOR BREAKFAST WILL MONITER
[2016-06-19] MEDS ORDERED: BACLOFEN10 MG PO (08:12)
[2016-06-19] MEDS ORDERED: ZYPREXA5 MG PO (08:25)
[2016-06-19 08:39] VITALS: BP 151/74
--- NOTE | 2016-06-19 11:45 | NUR ---
PT DISCHARGED TO HOME VIA WHEELCHAIR WITH DISCHARGE SUMMARY AND MEDS REVIEWED WITH AND HE STATED HE HAD ALL MEDS AT HOME PT TOLERATED WELL
--- NOTE | 2016-06-19 12:00 | NUR ---
PATIENT DISCHARGING HOME WITH SPOUSE, [facility] FORM SIGNED , EXPLAINED AND FILED IN CHART. [facility] WHEN FAMILY DECIDES. APPOINTMENT: DR. SHARMA 06/29/16 @ 10:00. HOSPICE NOTIFIED OF DISCHARGE
--- NOTE | 2016-06-19 13:41 | NUR ---
DISCHARGE CLINICALS FAXED TO [facility] AT [phone] , AUTH # [id number] TO URSULA
--- NOTE | 2016-07-21 09:41 | DS ---
PATIENT:CLINT HUSAIN :45 MEDICAL RECORD: [id number] DISCHARGE SUMMARY ADMISSION DATE: 06/10/16 DISCHARGE DATE: 06/19/16 This is a discharge dated 06/19/2016 from inpatient rehab. PRIMARY DIAGNOSIS: Decreased functional ability and ability to provide activities of daily living secondary to a cerebrovascular accident. SECONDARY DIAGNOSES: 1. Moyamoya disease with vascular dementia. 2. Urinary incontinence. 3. Hypertension. 4. Hyperlipidemia. 5. Dyspnea. 6. Anemia. 7. Aspiration. 8. Hypokalemia. HOSPITAL COURSE: Full H&P is located elsewhere on the chart on this 70-year-old female who was admitted to inpatient rehab for physical therapy and occupational therapy to improve gait, transfer skills, bed mobility, and activities of daily living to a modified independent level. She was evaluated by PT and OT and their plans of care were followed. She required prison care for observation and assessment and medication administration. She was seen by speech therapy as well with diet recommendations per them. Electrolytes were managed by protocol. She was cooperative with therapies, progressing towards goals somewhat. Case management was involved for discharge planning. After discussion with the patient and family members, it was elected to pursue outpatient hospice care. The patient was considered stable for discharge on 06/19/2016. DISCHARGE MEDICATIONS: As per discharge medication reconciliation. DISCHARGE DISPOSITION: The patient is discharged home. They will have home health and [facility] home calls and will have a hospice consult as an outpatient. TRANSINT:[id number] Voice Confirmation ID: [id number] DOCUMENT ID: [id number] Dictated By: KIRA AZEVEDO I have interviewed/examined the above patient and agree with these documented findings. DARIN BETHEA MD at 0941 at 1058 CC: [id number] DICTATION DATE: 07/19/161825 PROGRAM ENGINEER: 07/19/162137 DIS IN 06/19/16 [facility] [address] [place] [address]
== END 2016-06-19 13:40 | disposition home or self-care (01) | DRG 65 ==
LOC: D.REHAB 11:07
PROVIDERS: ADMIT Emergency Medicine
DX: I63.511 Cerebral infarction due to unspecified occlusion or stenosis of right middle cerebral artery (principal); I67.5 Moyamoya disease; F01.50 Vascular dementia, unspecified severity, without behavioral disturbance, psychotic disturbance, mood disturbance, and anxiety; E78.5 Hyperlipidemia, unspecified; Z91.81 History of falling; R09.02 Hypoxemia; R06.00 Dyspnea, unspecified; R53.83 Other fatigue; D64.9 Anemia, unspecified; I49.9 Cardiac arrhythmia, unspecified; R53.81 Other malaise; I95.9 Hypotension, unspecified; E05.90 Thyrotoxicosis, unspecified without thyrotoxic crisis or storm